=== PATIENT | female | born 1955 | race African-American/Black ===

== ENCOUNTER 2016-09-21 09:48 | Outpatient (CLI) | payer OTHER | END 2016-09-21 09:49 | disposition home or self-care (01) | LOC: SC 09:48 | PROVIDERS: ATTEND Nurse Practitioner Family | DX: G47.33 Obstructive sleep apnea (adult) (pediatric) (principal) | CPT/HCPCS: 99212; 99214 ==

== ENCOUNTER 2016-11-21 19:40 | Outpatient (CLI) | payer OTHER | END 2016-11-21 19:41 | disposition home or self-care (01) | LOC: SC 19:40 | PROVIDERS: ATTEND Internal Medicine Pulmonary Disease | DX: G47.33 Obstructive sleep apnea (adult) (pediatric) (principal) | CPT/HCPCS: 95810 ==

== ENCOUNTER 2016-12-06 02:32 | Emergency (ER) | payer OTHER ==
[2016-12-06 02:41] VITALS: BP 180/82
--- NOTE | 2016-12-06 02:51 | ED Physician Documentation ---
PD HPI FEMALE - Stated complaint Stated Complaint: ABDOMINAL PAIN - Chief complaint Chief Complaint: Abd Pain - History obtained from History obtained from: Patient - History of Present Illness Timing - onset: Last night Timing - details: Still present Associated symptoms: Dysuria, Urinary frequency Similar symptoms before: Diagnosis (UTI years ago.) - Additional information Additional information: The patient is a 61-year-old female who presents complaining of dysuria and frequency of urination. Her symptoms started last night and it become worse. She reports mild suprapubic abdominal discomfort. She denies fever or back pain. She states it feels like when she previously has been diagnosed with urinary tract infection, the last time which was more than 2 years ago. Review of Systems Constitutional: denies: Fever, Chills Nose: denies: Congestion Throat: denies: Sore throat Respiratory: denies: Dyspnea, Cough GI: reports: Abdominal Pain (mild suprapubic). denies: Nausea, Vomiting : reports: Dysuria, Frequency Skin: denies: Rash Musculoskeletal: denies: Back pain Neurologic: denies: Headache PD PAST MEDICAL HISTORY - Past Medical History Cardiovascular: Hypertension, High cholesterol, Coronary artery disease Endocrine/Autoimmune: Type 2 diabetes - Past Surgical History Past Surgical History: Yes Cardiovascular: CABG - Present Medications Home Medications: Ambulatory Orders Medication Instructions Recorded Confirmed Aspirin 81 mg PO DAILY 08/25/12 12/06/16 Atorvastatin Calcium [Lipitor] 30 mg PO HS 08/25/12 12/06/16 Ezetimibe [Zetia] 10 mg PO QD 08/25/12 12/06/16 Nitroglycerin [Nitrostat] 0.4 mg SL Q5MIN PRN 08/25/12 12/06/16 Ranitidine HCl 150 mg PO BID #28 capsule 08/25/12 12/06/16 Benzonatate [Tessalon Perle] 100 - 200 mg PO TID PRN #20 capsule 02/16/14 Azithromycin [Zithromax] 250 mg PO DAILY #6 tablet 02/24/15 12/06/16 Benzonatate [Tessalon Perle] 100 - 200 mg PO TID PRN #20 capsule 02/24/15 Nitrofurantoin Monohyd/M-Cryst 100 mg PO BID #10 capsule 12/06/16 [Macrobid 100 mg Capsule] Phenazopyridine HCl [Pyridium] 200 mg PO TID PRN #10 tablet 12/06/16 - Allergies Allergies/Adverse Reactions: Allergies Allergy/AdvReac Type Severity Reaction Status Date / Time nitroglycerin Allergy Hallucinati Verified 12/06/16 02:41 ons - Social History Does the pt smoke?: No Smoking Status: Never smoker Does the pt drink ETOH?: No Does the pt have substance abuse?: No - POLST Patient has POLST: No PD ED PE NORMAL - Vitals Vital signs reviewed: Yes (hypertensive) - General General: Alert and oriented X 3, Other (Overweight) - HEENT HEENT: Atraumatic, Pharynx benign - Neck Neck: No adenopathy, No JVD - Cardiac Cardiac: RRR, No murmur - Respiratory Respiratory: No respiratory distress, Clear bilaterally - Abdomen Abdomen: Soft, Non tender - Back Back: No CVA TTP - Derm Derm: No rash - Neuro Neuro: Alert and oriented X 3, No motor deficit, Normal speech Results - Vitals Vitals: Vital Signs - 24 hr 12/06/16 02:38 Temperature 37 C Heart Rate 71 Respiratory 18 Rate Blood Pressure 180/82 H O2 Saturation 97 Oxygen O2 Source Room air - Labs Labs: Laboratory Tests 12/06/16 02:37 Urine Color YELLOW Urine Clarity SL. CLOUDY Urine pH 6.0 Ur Specific [place] 1.025 Urine Protein 100 H Urine Glucose (UA) NEGATIVE Urine Ketones NEGATIVE Urine Occult Blood LARGE H Urine Nitrite NEGATIVE Urine Bilirubin NEGATIVE Urine Urobilinogen 0.2 (NORMAL) Ur Leukocyte Esterase LARGE H Urine RBC TNTC H Urine WBC 11-25 H Ur Squamous Epith Cells RARE Squamous Urine Bacteria Few Urine Casts 3-5 Hyaline Casts Ur Microscopic Review INDICATED Urine Culture Comments INDICATED PD MEDICAL DECISION MAKING - ED course Complexity details: reviewed old records, reviewed results, re-evaluated patient , considered differential, d/w patient ED course: The patient's presentation is most consistent with acute urinary tract infection. Her presentation does not suggest pyelonephritis nor sepsis. Treatment in the emergency department included administration of Macrobid 100 mg orally, and Pyridium 200 mg orally. She is being discharged with prescriptions for both. I discussed with her the diagnosis, expected course of illness, antibiotic treatment and outpatient follow-up, as well as potentially worrisome signs or symptoms that should prompt reevaluation in the emergency department. Departure - Departure Disposition: Home, Self Care Clinical Impression: Urinary tract infection Qualifiers: Urinary tract infection type: acute cystitis Hematuria presence: with hematuria Qualified Code(s): N30.01 - Acute cystitis with hematuria Condition: Stable Instructions: ED UTI Cystitis Female Follow-Up: [facility] [Provider Group] Prescriptions: Nitrofurantoin Monohyd/M-Cryst [Macrobid 100 mg Capsule] 100 mg PO BID #10 capsule Phenazopyridine HCl [Pyridium] 200 mg PO TID PRN #10 tablet PRN Reason: pain with urination Comments: Drink plenty of fluids, including cranberry juice. Take Macrobid twice daily as prescribed. You can use Pyridium as prescribed if needed for painful urination. Follow up with your primary physician within 2 weeks. Call to schedule appointment. Return to the emergency department if you develop increasing abdominal pain, fever with shaking chills, persistent vomiting, or otherwise worsening symptoms.
[2016-12-06 02:53] LABS: BILIRUBIN,URINE NEGATIVE (NEGATIVE)
[2016-12-06 02:54] LABS: UA w/ MICROSCOPIC CHARGE YES
[2016-12-06 03:04] LABS: UR CULTURE IF IND INDICATED
[2016-12-06] MEDS ORDERED: NITROFURANTOIN MACRO 100 MG CAPSULE PO STA (03:12)
[2016-12-06] MEDS ORDERED: PHENAZOPYRIDINE 100 MG TABLET PO STA (03:13)
[2016-12-06] MEDS ORDERED: NITROFURANTOIN MACRO 100 MG CAPSULE PO ONE (03:22)
[2016-12-06] MEDS ORDERED: PHENAZOPYRIDINE 100 MG TABLET PO ONE (03:22)
== END 2016-12-06 03:20 | disposition home or self-care (01) ==
LOC: ED 02:32
DX: N30.01 Acute cystitis with hematuria (principal); I10 Essential (primary) hypertension; E78.00 Pure hypercholesterolemia, unspecified; I25.10 Atherosclerotic heart disease of native coronary artery without angina pectoris; E11.9 Type 2 diabetes mellitus without complications; Z79.82 Long term (current) use of aspirin
CPT/HCPCS: 81001; 87086; 87181; 99283; A9270; 81003

== ENCOUNTER 2017-01-26 20:28 | Emergency (ER) | payer OTHER ==
[2017-01-26] MEDS ORDERED: ACETAMINOPHEN 325 MG TABLET PO STA (21:14)
--- NOTE | 2017-01-26 21:16 | ED Physician Documentation ---
History of Present Illness - Stated complaint Stated Complaint: LEG/FOOT PX - Chief complaint Chief Complaint: Ext Problem - History obtained from History obtained from: Patient - History of Present Illness Timing: Other (1 month) Pain level max: 5 Pain level now: 2 Improved by: nothing, hasn't taken anything Associated symptoms: no numbness or tingling - Additonal information Additional information: Patient states that she has B LE pain from her toes to mid calf. R > L. worse at night and with walking. No pain posterior calf, all anterior tibial area. Review of Systems Constitutional: denies: Fever Skin: denies: Rash Neurologic: denies: Focal weakness, Numbness, Confused PD PAST MEDICAL HISTORY - Past Medical History Cardiovascular: Hypertension, High cholesterol, Coronary artery disease Endocrine/Autoimmune: Type 2 diabetes - Past Surgical History Past Surgical History: Yes Cardiovascular: CABG - Present Medications Home Medications: Ambulatory Orders Medication Instructions Recorded Confirmed Aspirin 81 mg PO DAILY 08/25/12 01/26/17 Atorvastatin Calcium [Lipitor] 30 mg PO HS 08/25/12 01/26/17 Ezetimibe [Zetia] 10 mg PO QD 08/25/12 01/26/17 Nitroglycerin [Nitrostat] 0.4 mg SL Q5MIN PRN 08/25/12 01/26/17 raNITIdine HCl [Ranitidine HCl] 150 mg PO BID #28 capsule 08/25/12 01/26/17 Cyclobenzaprine [Flexeril] 5 - 10 mg PO TID PRN #10 tablet 01/26/17 - Allergies Allergies/Adverse Reactions: Allergies Allergy/AdvReac Type Severity Reaction Status Date / Time nitroglycerin Allergy Hallucinati Verified 01/26/17 20:38 ons - Social History Does the pt smoke?: No Smoking Status: Never smoker Does the pt drink ETOH?: No Does the pt have substance abuse?: No - POLST Patient has POLST: No PD ED PE NORMAL - Vitals Vital signs reviewed: Yes - General General: Alert and oriented X 3, No acute distress - Derm Derm: Warm and dry - Extremities Extremities: Other (Bilateral tenderness along the tibialis anterior. No bony tenderness. Mild swelling bilaterally. Neurovascularly intact. Strong dorsalis pedis and posterior tibial pulses.) - Neuro Neuro: Alert and oriented X 3 - Psych Psych: Normal mood, Normal affect Results - Vitals Vitals: Vital Signs - 24 hr 01/26/17 01/26/17 01/26/17 20:33 22:42 22:44 Temperature 36.0 C L 36.1 C L Heart Rate 63 61 Respiratory 20 20 Rate Blood Pressure 143/84 H 118/61 O2 Saturation 100 100 Oxygen O2 Source Room air - Rads (name of study) Bilateral lower extremity duplex ultrasound Radiology: Prelim report reviewed, EMP read contemporaneously, See rad report ( No DVT) PD MEDICAL DECISION MAKING - ED course Complexity details: reviewed results, re-evaluated patient, considered differential, d/w patient ED course: Patient is a 61-year-old female who presents to the emergency department with bilateral tibialis anterior pain. Appears worse when she is lying down at night. Compartments of the leg are soft. No evidence of compartment syndrome. Neurovascularly intact. No DVT. No cellulitis. Will trial on pain medication and muscle relaxants for home and follow-up closely with her doctor. Patient counseled regarding signs and symptoms for which I believe and urgent re-evaluation would be necessary. Patient with good understanding of and agreement to plan and is comfortable going home at this time This document was made in part using voice recognition software. While efforts are made to proofread this document, sound alike and grammatical errors may occur. Patient declines blood work at this time to check electrolytes Departure - Departure Disposition: 01 Home, Self Care Clinical Impression: Muscle strain, lower leg Qualifiers: Encounter type: initial encounter Laterality: unspecified laterality Qualified Code(s): S86.919A - Strain of unspecified muscle(s) and tendon(s) at lower leg level, unspecified leg, initial encounter Condition: Good Instructions: ED Strain Muscle Ext Follow-Up: your,doctor in 1 week [Other] Prescriptions: Cyclobenzaprine [Flexeril] 5 - 10 mg PO TID PRN #10 tablet PRN Reason: leg pain Comments: You can also use tylenol at home for pain. Return if you worsen. Your tests are normal tonight. Discharge Date/Time: 01/26/17 22:50
--- NOTE | 2017-01-26 22:31 | Ultrasound Preliminary Report ---
Exam: US DUPLEX EXT VEINS RIGHT IMPRESSION: No evidence for deep venous thrombosis. Limited as above. [facility] SITE ID: [id number]
--- NOTE | 2017-01-26 22:33 | Ultrasound Preliminary Report ---
Exam: US DUPLEX EXT VEINS LEFT IMPRESSION: No evidence for deep venous thrombosis. Limited visualization as above. [facility] SITE ID: [id number]
--- NOTE | 2017-01-26 22:34 | Ultrasound Report ---
EXAM: RIGHT LOWER EXTREMITY VENOUS ULTRASOUND EXAM DATE: 01/26/2017 10:19 PM. CLINICAL HISTORY: RIGHT calf pain. COMPARISON: None. TECHNIQUE: Real-time sonographic vascular imaging was performed by the rod drawer through the lower extremity utilizing both color-flow and Doppler spectral analysis. Multiple rental representative static dk ges were saved for review. FINDINGS: Common Femoral Vein (CFV): Normal. CFV-GSV Junction: Normal. Profunda Femoral Vein (PFV): Normal. Femoral Vein (FV) Prox: Normal. Femoral Vein (FV) Mid: Normal. Femoral Vein (FV) Dist: No thrombosis seen. Limited visualization. Popliteal Vein: Normal. Posterior Tibial Veins: No thrombosis seen. Limited visualization. Peroneal Veins: No thrombosis seen. Limited visualization. IMPRESSION: No evidence for deep venous thrombosis. Limited as above. [facility] Referring Provider Line: [phone] SITE ID: [id number]
--- NOTE | 2017-01-26 22:36 | Ultrasound Report ---
EXAM: LEFT LOWER EXTREMITY VENOUS ULTRASOUND EXAM DATE: 01/26/2017 09:47 PM. CLINICAL HISTORY: Left lower extremity pain, swelling, calf. COMPARISON: None. TECHNIQUE: Real-time sonographic vascular imaging was performed by the retina subspecialist through the lower extremity utilizing both color-flow and Doppler spectral analysis. Multiple sales representative advertising static dk ges were saved for review. FINDINGS: Common Femoral Vein (CFV): Normal. CFV-GSV Junction: Normal. Profunda Femoral Vein (PFV): Normal. Femoral Vein (FV) Prox: Normal. Femoral Vein (FV) Mid: No thrombosis seen. Limited visualization. Femoral Vein (FV) Dist: No thrombosis seen. Limited visualization. Popliteal Vein: Normal. Posterior Tibial Veins: No thrombosis seen. Limited visualization. Peroneal Veins: No thrombosis seen. Limited visualization. IMPRESSION: No evidence for deep venous thrombosis. Limited visualization as above. [facility] Referring Provider Line: [phone] SITE ID: [id number]
[2017-01-26] MEDS ORDERED: ACETAMINOPHEN 325 MG TABLET PO ONE (22:38)
[2017-01-26 22:43] VITALS: BP 118/61
== END 2017-01-26 22:50 | disposition home or self-care (01) ==
LOC: ED 20:28
DX: S86.919A Strain of unspecified muscle(s) and tendon(s) at lower leg level, unspecified leg, initial encounter (principal); X58.XXXA Exposure to other specified factors, initial encounter; I10 Essential (primary) hypertension; E78.00 Pure hypercholesterolemia, unspecified; I25.10 Atherosclerotic heart disease of native coronary artery without angina pectoris; E11.9 Type 2 diabetes mellitus without complications; Z95.1 Presence of aortocoronary bypass graft
CPT/HCPCS: 99283

== ENCOUNTER 2017-09-13 20:23 | Emergency (ER) | payer OTHER ==
[2017-09-13 20:28] VITALS: BP 136/70
--- NOTE | 2017-09-13 20:53 | ED Physician Documentation ---
PD HPI FEMALE - Stated complaint Stated Complaint: FEMALE - Chief complaint Chief Complaint: UTI - History obtained from History obtained from: Patient - History of Present Illness Timing - onset: How many days ago (2) Timing - duration: Days (2) Timing - details: Gradual onset, Still present, Waxing and waning Associated symptoms: Dysuria, Urinary frequency. No: Fever, Vaginal discharge, Genital sore/lesion Similar symptoms before: Diagnosis (uti) Review of Systems Constitutional: denies: Fever, Chills, Myalgias GI: denies: Abdominal Pain, Nausea, Vomiting : reports: Dysuria, Frequency. denies: Discharge Skin: denies: Rash PD PAST MEDICAL HISTORY - Past Medical History Past Medical History: Yes Cardiovascular: Hypertension, High cholesterol, Coronary artery disease Endocrine/Autoimmune: Type 2 diabetes - Past Surgical History Past Surgical History: Yes Cardiovascular: CABG - Present Medications Home Medications: Ambulatory Orders Medication Instructions Recorded Confirmed Aspirin 81 mg PO DAILY 08/25/12 09/13/17 Atorvastatin Calcium [Lipitor] 30 mg PO HS 08/25/12 09/13/17 Ezetimibe [Zetia] 10 mg PO QD 08/25/12 09/13/17 Nitroglycerin [Nitrostat] 0.4 mg SL Q5MIN PRN 08/25/12 09/13/17 raNITIdine HCl [Ranitidine HCl] 150 mg PO BID #28 capsule 08/25/12 09/13/17 Phenazopyridine [Pyridium] 200 mg PO TID PRN #18 tablet 09/13/17 Sulfamethox/Trimeth 800/160 1 each PO BID #14 tablet 09/13/17 [Bactrim Ds 800/160] - Allergies Allergies/Adverse Reactions: Allergies Allergy/AdvReac Type Severity Reaction Status Date / Time nitroglycerin Allergy Hallucinati Verified 09/13/17 20:28 ons - Social History Does the pt smoke?: No Smoking Status: Never smoker Does the pt drink ETOH?: No Does the pt have substance abuse?: No - Immunizations Immunizations are current?: Yes - POLST Patient has POLST: No PD ED PE NORMAL - Vitals Vital signs reviewed: Yes - General General: Alert and oriented X 3, No acute distress, Well developed/nourished - Abdomen Abdomen: Soft, Non tender - Female Female : Deferred - Rectal Rectal: Deferred - Back Back: No CVA TTP - Derm Derm: Normal color, Warm and dry Results - Vitals Vitals: Oxygen O2 Source Room air - Labs Labs: Laboratory Tests 09/13/17 21:19 Urine Color YELLOW Urine Clarity HAZY Urine pH 6.0 Ur Specific [place] <=1.005 Urine Protein NEGATIVE Urine Glucose (UA) NEGATIVE Urine Ketones NEGATIVE Urine Occult Blood MODERATE H Urine Nitrite NEGATIVE Urine Bilirubin NEGATIVE Urine Urobilinogen 0.2 (NORMAL) Ur Leukocyte Esterase MODERATE H Urine RBC 0-5 Urine WBC >25 H Urine WBC Clumps PRESENT Ur Squamous Epith Cells MOD Squamous H Urine Bacteria Moderate H Ur Microscopic Review INDICATED Urine Culture Comments NOT INDICATED PD MEDICAL DECISION MAKING - ED course Complexity details: reviewed results, considered differential, d/w patient - Sepsis Event Vital Signs: Oxygen O2 Source Room air Departure - Departure Disposition: 01 Home, Self Care Clinical Impression: Urinary tract infection Qualifiers: Urinary tract infection type: acute cystitis Hematuria presence: without hematuria Qualified Code(s): N30.00 - Acute cystitis without hematuria Condition: Stable Record reviewed to determine appropriate education?: Yes Instructions: Urinary Tract Infecs Women Prescriptions: Phenazopyridine [Pyridium] 200 mg PO TID PRN #18 tablet PRN Reason: Pain Sulfamethox/Trimeth 800/160 [Bactrim Ds 800/160] 1 each PO BID #14 tablet Comments: Drink adequate fluids. Tylenol if needed for pain. Phenazopyridine every 6 hours if needed for discomfort of urination. It will turn your urine a little orange colored so not to worry. Bactrim antibiotic twice daily for 6 days. Recheck if not improved over the next couple of days however. Discharge Date/Time: 09/13/17 22:18
[2017-09-13 21:23] LABS: BILIRUBIN,URINE NEGATIVE (NEGATIVE); GLUCOSE, URINE (UA) NEGATIVE (NEGATIVE); KETONES,URINE (UA) NEGATIVE (NEGATIVE); LEUKOCYTE ESTERASE, URINE MODERATE (NEGATIVE); NITRITE,URINE NEGATIVE (NEGATIVE); OCCULT BLOOD,URINE MODERATE (NEGATIVE); PROTEIN,URINE NEGATIVE (NEGATIVE); UROBILINOGEN,URINE 0.2 (NORMAL) E.U./dL (NORMAL)
[2017-09-13 21:27] LABS: CLARITY,URINE HAZY (CLEAR)
[2017-09-13 21:33] LABS: BACTERIA,URINE Moderate /HPF (None Seen); RBC,URINE 0-5 /HPF (0-5); SQUAMOUS EPITHELIAL CELL,UR MOD Squamous (<= Few); WBC CLUMPS,URINE PRESENT
[2017-09-13] MEDS ORDERED: PHENAZOPYRIDINE 100 MG TABLETS (Prepack) PO PRN (22:01)
[2017-09-13] MEDS ORDERED: SULFAM/TRIM 800/160 Prepack 2 PO ONE (22:01)
== END 2017-09-13 22:18 | disposition home or self-care (01) ==
LOC: ED 20:23
DX: N30.00 Acute cystitis without hematuria (principal); E11.9 Type 2 diabetes mellitus without complications; I10 Essential (primary) hypertension; I25.10 Atherosclerotic heart disease of native coronary artery without angina pectoris; E78.00 Pure hypercholesterolemia, unspecified; Z95.1 Presence of aortocoronary bypass graft; Z79.82 Long term (current) use of aspirin
CPT/HCPCS: 81001; 81003; 87086; 99283

== ENCOUNTER 2017-12-11 19:38 | Emergency (ER) | payer OTHER ==
[2017-12-11] MEDS ORDERED: MAG HYDROX/AL HYDROX/SIMETH 30 ML UDC PO STA (20:10)
[2017-12-11] MEDS ORDERED: FAMOTIDINE 20 MG TABLET PO STA (20:10)
[2017-12-11] MEDS ORDERED: LIDOCAINE VISCOUS 2% 15 ML UDC MM STA (20:10)
--- NOTE | 2017-12-11 20:23 | ED Physician Documentation ---
PD HPI CHEST PAIN - Stated complaint Stated Complaint: CHEST PX - Chief complaint Chief Complaint: Cardiac - History obtained from History obtained from: Patient - History of Present Illness Timing - onset: How many days ago (2) Timing - onset during: Rest Timing - details: Intermittant Quality: Sharp Location: Substernal Radiation: No: Other (throat) Worsened by: Eating Associated symptoms: No: Shortness of air Similar symptoms before: Has not had sx before Recently seen: Clinic - Additional information Additional information: Patient is a 62 year old female with a history of coronary bipass approximately 12 years ago who is presenting to the emergency department for epigastric pain. patient states that it is in the center of her chest and it goes up her throat. it is worsening by food. there is no exertional component to her symptoms. patient states that it has been going on for the last few days. patient was at [employer] today and the preaching was talking about ignoring things in life so she decided to come in to get evaluated. Patient had a treadmill stress test 4 months ago and it was within normal limits. Review of Systems Ten Systems: 10 systems reviewed and negative Constitutional: denies: Fever, Chills Cardiac: reports: Chest pain / pressure Respiratory: denies: Dyspnea, Cough, Wheezing GI: reports: Abdominal Pain. denies: Nausea, Vomiting PD PAST MEDICAL HISTORY - Past Medical History Cardiovascular: Hypertension, High cholesterol, Coronary artery disease Endocrine/Autoimmune: Type 2 diabetes - Past Surgical History Past Surgical History: Yes Cardiovascular: CABG - Present Medications Home Medications: Ambulatory Orders Medication Instructions Recorded Confirmed Aspirin 81 mg PO DAILY 08/25/12 09/13/17 Atorvastatin Calcium [Lipitor] 30 mg PO HS 08/25/12 09/13/17 Ezetimibe [Zetia] 10 mg PO QD 08/25/12 09/13/17 Nitroglycerin [Nitrostat] 0.4 mg SL Q5MIN PRN 08/25/12 09/13/17 raNITIdine HCl [Ranitidine HCl] 150 mg PO BID #28 capsule 08/25/12 09/13/17 Phenazopyridine [Pyridium] 200 mg PO TID PRN #18 tablet 09/13/17 Sulfamethox/Trimeth 800/160 1 each PO BID #14 tablet 09/13/17 [Bactrim Ds 800/160] Lidocaine HCl [Lidocaine HCl 15 ml MM DAILY PRN #200 ml 12/11/17 Viscous] - Allergies Allergies/Adverse Reactions: Allergies Allergy/AdvReac Type Severity Reaction Status Date / Time nitroglycerin Allergy Hallucinati Verified 12/11/17 20:02 ons - Social History Does the pt smoke?: No Smoking Status: Never smoker Does the pt drink ETOH?: No Does the pt have substance abuse?: No - Immunizations Immunizations are current?: Yes - POLST Patient has POLST: No PD ED PE NORMAL - Vitals Vital signs reviewed: Yes - General General: Alert and oriented X 3, No acute distress - HEENT HEENT: Atraumatic, PERRL - Cardiac Cardiac: RRR - Respiratory Respiratory: No respiratory distress, Clear bilaterally - Abdomen Abdomen: Soft - Derm Derm: Normal color, Warm and dry - Extremities Extremities: No deformity - Neuro Neuro: No motor deficit, Normal speech Results - Vitals Vitals: Vital Signs - 24 hr 12/11/17 19:50 Temperature 98.0 C H Heart Rate 71 Respiratory 18 Rate Blood Pressure 167/73 H O2 Saturation 98 Oxygen O2 Source Room air - EKG (time done) 2000 Rate: Rate (enter#) (69) Rhythm: NSR [place]: Normal Compare to prior EKG: Unchanged from prior EKG - Labs Labs: Laboratory Tests 12/11/17 12/11/17 12/11/17 20:50 20:50 20:50 WBC 5.1 RBC 4.00 L Hgb 11.3 L Hct 33.4 L MCV 83.5 MCH 28.3 MCHC 33.9 RDW 15.7 H Plt Count 175 MPV 9.0 Neut # (Auto) 2.5 Lymph # (Auto) 2.0 [place] # (Auto) 0.3 Eos # (Auto) 0.1 Baso # (Auto) 0.1 Absolute Nucleated RBC 0.00 Nucleated RBC % 0.0 Sodium 135 Potassium 3.2 L Chloride 98 L Carbon Dioxide 28 Anion Gap 9.0 BUN 12 Creatinine 0.9 Estimated GFR (MDRD) 77 L Glucose 94 Calcium 9.3 Total Bilirubin 0.6 AST 21 ALT 15 Alkaline Phosphatase 82 Troponin I < 0.04 B-Natriuretic Peptide Total Protein 8.6 H Albumin 3.7 Globulin 4.9 H Albumin/Globulin Ratio 0.8 L Lipase 34 12/11/17 20:50 WBC RBC Hgb Hct MCV MCH MCHC RDW Plt Count MPV Neut # (Auto) Lymph # (Auto) [place] # (Auto) Eos # (Auto) Baso # (Auto) Absolute Nucleated RBC Nucleated RBC % Sodium Potassium Chloride Carbon Dioxide Anion Gap BUN Creatinine Estimated GFR (MDRD) Glucose Calcium Total Bilirubin AST ALT Alkaline Phosphatase Troponin I B-Natriuretic Peptide 21 Total Protein Albumin Globulin Albumin/Globulin Ratio Lipase - Rads (name of study) chest x-ray Radiology: Final report received (no acute abnormalities) PD MEDICAL DECISION MAKING - ED course Complexity details: reviewed old records, reviewed results, re-evaluated patient, considered differential, d/w patient ED course: Rosaura was seen and examined at bedside. patient was well appearing and in no distress. ekg was performed and although poor quality was similar to previous. patient was treated with pepcid, maalox and viscous lidocaine with good relief. patient's labs were within normal limits. patient had a negative stress test less than a year ago. patient's symptoms were unlikely cardiac and patient was stable for discharge with outpatient follow up. - Sepsis Event Vital Signs: Vital Signs - 24 hr 12/11/17 19:50 Temperature 98.0 C H Heart Rate 71 Respiratory 18 Rate Blood Pressure 167/73 H O2 Saturation 98 Oxygen O2 Source Room air Departure - Departure Disposition: 01 Home, Self Care Clinical Impression: Gastroesophageal reflux disease Condition: Good Instructions: GERD Dc Follow-Up: primary,care provider [Other] - Tomorrow Prescriptions: Lidocaine HCl [Lidocaine HCl Viscous] 15 ml MM DAILY PRN #200 ml PRN Reason: Abdominal Pain Comments: Your diagnostics today were within normal limits. there were no significant abnormalities. Your symptoms more likely due to acid reflux as opposed to car diac but it is important that you follow up with your doctor. You should avoid fried foods, spicy foods, and acidic foods. You should reutn to the emergency department for worsening symptoms.
--- NOTE | 2017-12-11 20:54 | XRAY Report ---
Reason: fever, hx of lung failure Procedure Date: 12/11/2017 Accession Number: [id number] / [id number] Procedure: XR - Chest 1 View X-Ray CPT Code: 24852 FULL RESULT: EXAM: CHEST RADIOGRAPHY EXAM DATE: 12/11/2017 08:24 PM. CLINICAL HISTORY: Fever, hx of lung failure. COMPARISON: 08/25/2012. TECHNIQUE: 1 view. FINDINGS: Lungs/Pleura: No focal opacities evident. No pleural effusion. No pneumothorax. Mediastinum: Previous sternotomy noted. Mediastinal contour are unchanged. Other: None. IMPRESSION: Negative for an acute cardiopulmonary abnormality. [facility]
[2017-12-11 20:56] LABS: BASOPHILS # (AUTO) 0.1 10^3/uL (0.0-0.1); BASOPHILS % (AUTO) 1.1 %; EOSINOPHILS # (AUTO) 0.1 10^3/uL (0.0-0.7); EOSINOPHILS % (AUTO) 2.7 %; HGB - HEMOGLOBIN 11.3 g/dL (12.0-16.0); LYMPHOCYTES % (AUTO) 39.6 %; MEAN CORPUSCULAR HEMOGLOBIN 28.3 pg (27.0-31.0); MEAN CORPUSCULAR HGB CONC 33.9 g/dL (32.0-36.0); MEAN CORPUSCULAR VOLUME 83.5 fL (81.0-99.0); MONOCYTES # (AUTO) 0.3 10^3/uL (0.0-1.0); MONOCYTES % (AUTO) 6.9 %; NEUTROPHILS # (AUTO) 2.5 10^3/uL (1.5-6.6); NEUTROPHILS % (AUTO) 49.7 %; PLT - PLATELET COUNT 175 10^3/uL (130-450); RED CELL DISTRIBUTION WIDTH 15.7 % (12.0-15.0); WHITE BLOOD COUNT 5.1 x10^3/uL (4.8-10.8)
[2017-12-11 21:10] LABS: ALBUMIN 3.7 g/dL (3.2-5.5); ALBUMIN/GLOBULIN RATIO 0.8 (1.0-2.2); BILIRUBIN,TOTAL 0.6 mg/dL (0.2-1.0); CALCIUM 9.3 mg/dL (8.5-10.3); CREATININE 0.9 mg/dL (0.4-1.0); TOTAL PROTEIN 8.6 g/dL (6.7-8.2)
[2017-12-11 21:39] VITALS: BP 147/85
== END 2017-12-11 21:39 | disposition home or self-care (01) ==
LOC: ED 19:38
DX: I10 Essential (primary) hypertension (principal); E11.9 Type 2 diabetes mellitus without complications; Z95.1 Presence of aortocoronary bypass graft; K21.9 Gastro-esophageal reflux disease without esophagitis
CPT/HCPCS: 36415; 71045; 80053; 83690; 83880; 84484; 85025; 93005; 99283; A9270

== ENCOUNTER 2018-04-08 09:14 | Emergency (ER) | payer OTHER ==
[2018-04-08] MEDS ORDERED: LIDOCAINE PATCH 5% TOP STA (10:00)
--- NOTE | 2018-04-08 10:02 | ED Physician Documentation ---
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 - to ED for some medications to ease the pain Review of Systems Constitutional: denies: Fever Cardiac: denies: Chest pain / pressure Respiratory: denies: Dyspnea GI: denies: Abdominal Pain : denies: Dysuria, Incontinent, Hematuria Musculoskeletal: reports: Back pain, Joint pain Neurologic: denies: Focal weakness, Numbness Endocrine: denies: Easy bruising / bleeding Immunocompromised: denies: Immunocompromised PD PAST MEDICAL HISTORY - Past Medical History Cardiovascular: Hypertension, High cholesterol, Coronary artery disease Endocrine/Autoimmune: Type 2 diabetes - Past Surgical History Past Surgical History: Yes Cardiovascular: CABG - Present Medications Home Medications: Ambulatory Orders Medication Instructions Recorded Confirmed Aspirin 81 mg PO DAILY 08/25/12 09/13/17 Atorvastatin Calcium [Lipitor] 30 mg PO HS 08/25/12 09/13/17 Ezetimibe [Zetia] 10 mg PO QD 08/25/12 09/13/17 Nitroglycerin [Nitrostat] 0.4 mg SL Q5MIN PRN 08/25/12 09/13/17 raNITIdine HCl [Ranitidine HCl] 150 mg PO BID #28 capsule 08/25/12 09/13/17 Phenazopyridine [Pyridium] 200 mg PO TID PRN #18 tablet 09/13/17 Sulfamethox/Trimeth 800/160 1 each PO BID #14 tablet 09/13/17 [Bactrim Ds 800/160] Lidocaine HCl [Lidocaine HCl 15 ml MM DAILY PRN #200 ml 12/11/17 Viscous] Cyclobenzaprine [Flexeril] 10 mg PO TID PRN #20 tablet 04/08/18 Indomethacin [Indocin] 25 mg PO BIDWM PRN #14 capsule 04/08/18 Lidocaine Patch 5% [Lidoderm Patch] 1 patch TOP DAILY PRN #10 patch 04/08/18 - Allergies Allergies/Adverse Reactions: Allergies Allergy/AdvReac Type Severity Reaction Status Date / Time nitroglycerin Allergy Hallucinati Verified 12/11/17 20:02 ons - Social History Does the pt smoke?: No Smoking Status: Never smoker Does the pt drink ETOH?: No Does the pt have substance abuse?: No - Immunizations Immunizations are current?: Yes - POLST Patient has POLST: No PD ED PE NORMAL - Vitals Vital signs reviewed: Yes - Cardiac Cardiac: RRR - Respiratory Respiratory: No respiratory distress, Clear bilaterally - Abdomen Abdomen: Non tender, Other (no pulsatile mass) - Back Back: Other (no focal spine TTP redness or warmth, TTP over posterior iliac spine region also s redness or warmth or rash, hip itself is full ROM flex ext int ext roat ADD ABD s pain, MSV intact) - Neuro Neuro: No motor deficit, No sensory deficit, Other (neg SLR, no clonus) Results - Vitals Vitals: Vital Signs - 24 hr 04/08/18 09:35 Temperature 36.2 C L Heart Rate 81 Respiratory 16 Rate Blood Pressure 144/88 H O2 Saturation 100 Oxygen O2 Source Room air PD MEDICAL DECISION MAKING - ED course ED course: focal TTP to very low L lumbar region after lifting hx exam do not suggest AAA, cauda equina, epidural abscess etc Departure - Departure Disposition: 01 Home, Self Care Clinical Impression: Back pain Qualifiers: Back pain location: low back pain Chronicity: acute Back pain laterality: left Sciatica presence: without sciatica Qualified Code(s): M54.5 - Low back pain Condition: Good Instructions: ED Low Back Pain Injury Prescriptions: Cyclobenzaprine [Flexeril] 10 mg PO TID PRN #20 tablet PRN Reason: Spasms Indomethacin [Indocin] 25 mg PO BIDWM PRN #14 capsule PRN Reason: Pain Lidocaine Patch 5% [Lidoderm Patch] 1 patch TOP DAILY PRN #10 patch PRN Reason: pain Comments: May wear the lidocaine patches applied to the most painful area for up to 12 hr a day Indocin to decrease pain and inflammation (take with food) And flexeril to help relax the muscles - may cause drowsiness so do not drive for 8 hr after taking this medication - may just want to take at night
[2018-04-08 10:15] VITALS: BP 117/105
== END 2018-04-08 10:27 | disposition home or self-care (01) ==
LOC: ED 09:14
DX: M54.5 Low back pain (principal); I25.10 Atherosclerotic heart disease of native coronary artery without angina pectoris; Z95.1 Presence of aortocoronary bypass graft; I10 Essential (primary) hypertension; E78.00 Pure hypercholesterolemia, unspecified; E11.9 Type 2 diabetes mellitus without complications; Z79.82 Long term (current) use of aspirin
CPT/HCPCS: 99283; A9270

== ENCOUNTER 2018-05-13 06:11 | Emergency (ER) | payer OTHER ==
[2018-05-13 06:22] VITALS: BP 135/76
--- NOTE | 2018-05-13 06:26 | ED Physician Documentation ---
PD HPI BACK PAIN - Stated complaint Stated Complaint: LOWER BACK PX - Chief complaint Chief Complaint: Back Pain - History obtained from History obtained from: Patient - History of Present Illness Timing - onset: Last night Timing - details: Gradual onset, Waxing and waning Location: Lower, Left Quality: Pain, Similar to prior episodes Associated symptoms: No: Fever, Weakness, Numbness, Incontinent of urine, Unable to urinate, Hematuria, Incontinent of stool Improves with: Rest Worsened by: Movement Recently seen: Emergency Dept - Additional information Additional information: c/o left low back pain that radiates around left side to left anterior hip/pelvis. T+R for similar symptoms 1 month ago, followed-up with PMD (ANISA) and has had one session with PT. 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 : None HEENT: None Psych: None Musculoskeletal: Chronic back pain Derm: None - Past Surgical History Past Surgical History: Yes Cardiovascular: CABG - Present Medications Home Medications: Ambulatory Orders Medication Instructions Recorded Confirmed Aspirin 81 mg PO DAILY 08/25/12 09/13/17 Atorvastatin Calcium [Lipitor] 30 mg PO HS 08/25/12 09/13/17 Ezetimibe [Zetia] 10 mg PO QD 08/25/12 09/13/17 Nitroglycerin [Nitrostat] 0.4 mg SL Q5MIN PRN 08/25/12 09/13/17 raNITIdine HCl [Ranitidine HCl] 150 mg PO BID #28 capsule 08/25/12 09/13/17 Phenazopyridine [Pyridium] 200 mg PO TID PRN #18 tablet 09/13/17 Sulfamethox/Trimeth 800/160 1 each PO BID #14 tablet 09/13/17 [Bactrim Ds 800/160] Lidocaine HCl [Lidocaine HCl 15 ml MM DAILY PRN #200 ml 12/11/17 Viscous] Cyclobenzaprine [Flexeril] 10 mg PO TID PRN #20 tablet 04/08/18 Indomethacin [Indocin] 25 mg PO BIDWM PRN #14 capsule 04/08/18 Lidocaine Patch 5% [Lidoderm Patch] 1 patch TOP DAILY PRN #10 patch 04/08/18 Cyclobenzaprine [Flexeril] 10 mg PO TID PRN #20 tablet 05/13/18 Lidocaine Patch 5% [Lidoderm Patch] 1 each TOP DAILY PRN #10 patch 05/13/18 Tramadol HCl 50 mg PO Q6HR PRN #20 tablet 05/13/18 - Allergies Allergies/Adverse Reactions: Allergies Allergy/AdvReac Type Severity Reaction Status Date / Time nitroglycerin Allergy Hallucinati Verified 05/13/18 06:21 ons - Social History Does the pt smoke?: No Smoking Status: Never smoker Does the pt drink ETOH?: No Does the pt have substance abuse?: No - Immunizations Immunizations are current?: Yes - POLST Patient has POLST: No PD ED PE NORMAL - Vitals Vital signs reviewed: Yes - General General: Alert and oriented X 3, No acute distress (NAD at rest but appears to have painful discomfort when she stands from seated position), Well developed/nourished - Abdomen Abdomen: Soft, Non tender - Back Back: No spinal TTP - Derm Derm: Normal color, Warm and dry, No rash - Extremities Extremities: No edema - Neuro Neuro: No motor deficit, No sensory deficit Results - Vitals Vitals: Vital Signs - 24 hr 05/13/18 06:18 Temperature 36.7 C Heart Rate 77 Respiratory 18 Rate Blood Pressure 135/76 H O2 Saturation 97 Oxygen O2 Source Room air PD MEDICAL DECISION MAKING - ED course Complexity details: reviewed old records, considered differential, d/w patient ED course: atraumatic left low back pain radiating around anteriorly to left hip/groin. no neurologic c/o nor findings, denies fever. unremarkable exam. emergent testing, including imaging, not indicated at this time. we discussed options for pain control, and she declines toradol, vicodin, oxycodone. she says she did not feel the medications provided on previous ED visit were particularly effective, but she is worried about side effects of narcotic medications that we discussed. after further discussion, we agreed that tramadol would be an appropriate medication to try, and she wishes to have new rx for lidocaine patches and flexeril. I instructed her to f/u w/ PMD and to return at any time she feels she needs reevaluation, particularly if she is worse in any way Departure - Departure Disposition: 01 Home, Self Care Clinical Impression: Back pain Qualifiers: Back pain location: low back pain Chronicity: acute Back pain laterality: left Sciatica presence: without sciatica Qualified Code(s): M54.5 - Low back pain Condition: Good Instructions: ED Neck Back Pain General Follow-Up: [facility] [Provider Group] Prescriptions: Tramadol HCl 50 mg PO Q6HR PRN #20 tablet PRN Reason: Pain Cyclobenzaprine [Flexeril] 10 mg PO TID PRN #20 tablet PRN Reason: Spasms Lidocaine Patch 5% [Lidoderm Patch] 1 each TOP DAILY PRN #10 patch PRN Reason: Pain Discharge Date/Time: 05/13/18 07:26
[2018-05-13] MEDS ORDERED: LIDOCAINE PATCH 5% TOP STA (07:09)
== END 2018-05-13 07:26 | disposition home or self-care (01) ==
LOC: ED 06:11
DX: M54.5 Low back pain (principal); M25.552 Pain in left hip; I10 Essential (primary) hypertension; E11.9 Type 2 diabetes mellitus without complications; Z79.82 Long term (current) use of aspirin
CPT/HCPCS: 99283; A9270

== ENCOUNTER 2019-04-02 07:24 | Emergency (ER) | payer OTHER ==
[2019-04-02 07:35] VITALS: BP 153/72
--- NOTE | 2019-04-02 07:45 | ED Physician Documentation ---
History of Present Illness - Stated complaint Stated Complaint: FEMALE - Chief complaint Chief Complaint: UTI - Additonal information Additional information: This is a 63-year-old female who presents with pain in urination for several day s. She denies abdominal pain fever or flank pain. She states that every time she pees is burning. This feels similar to past UTIs. Review of Systems Constitutional: denies: Fever GI: denies: Abdominal Pain : reports: Dysuria. 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 : None HEENT: None Psych: None Musculoskeletal: Chronic back pain Derm: None - Past Surgical History Past Surgical History: Yes Cardiovascular: CABG - Present Medications Home Medications: Ambulatory Orders Medication Instructions Recorded Confirmed Aspirin 81 mg PO DAILY 08/25/12 09/13/17 Atorvastatin Calcium [Lipitor] 30 mg PO HS 08/25/12 09/13/17 Ezetimibe [Zetia] 10 mg PO QD 08/25/12 09/13/17 Nitroglycerin [Nitrostat] 0.4 mg SL Q5MIN PRN 08/25/12 09/13/17 raNITIdine HCl [Ranitidine HCl] 150 mg PO BID #28 capsule 08/25/12 09/13/17 Phenazopyridine [Pyridium] 200 mg PO TID PRN #18 tablet 09/13/17 Sulfamethox/Trimeth 800/160 1 each PO BID #14 tablet 09/13/17 [Bactrim Ds 800/160] Lidocaine HCl [Lidocaine HCl 15 ml MM DAILY PRN #200 ml 12/11/17 Viscous] Cyclobenzaprine [Flexeril] 10 mg PO TID PRN #20 tablet 04/08/18 Indomethacin [Indocin] 25 mg PO BIDWM PRN #14 capsule 04/08/18 Lidocaine Patch 5% [Lidoderm Patch] 1 patch TOP DAILY PRN #10 patch 04/08/18 Cyclobenzaprine [Flexeril] 10 mg PO TID PRN #20 tablet 05/13/18 Lidocaine Patch 5% [Lidoderm Patch] 1 each TOP DAILY PRN #10 patch 05/13/18 Tramadol HCl 50 mg PO Q6HR PRN #20 tablet 05/13/18 - Allergies Allergies/Adverse Reactions: Allergies Allergy/AdvReac Type Severity Reaction Status Date / Time nitroglycerin Allergy Hallucinati Verified 04/02/19 07:35 ons - Social History Does the pt smoke?: No Smoking Status: Never smoker Does the pt drink ETOH?: No Does the pt have substance abuse?: No - Immunizations Immunizations are current?: Yes - POLST Patient has POLST: No PD ED PE NORMAL - Vitals Vital signs reviewed: Yes - General General: Alert and oriented X 3, No acute distress - Cardiac Cardiac: RRR - Respiratory Respiratory: No respiratory distress - Abdomen Abdomen: Soft, Non tender, Non distended - Derm Derm: Warm and dry - Extremities Extremities: No deformity - Neuro Neuro: Alert and oriented X 3 - Psych Psych: Normal mood, Normal affect Results - Vitals Vitals: Vital Signs - 24 hr 04/02/19 07:33 Temperature 36.3 C L Heart Rate 63 Respiratory 16 Rate Blood Pressure 153/72 H O2 Saturation 96 Oxygen O2 Source Room air PD MEDICAL DECISION MAKING - ED course ED course: This is a 63-year-old female presents with classic UTI symptoms. She has no abdominal pain flank pain fever or other symptoms that suggest pyelonephritis or more serious infection. She denies any pain or swelling of the vulva itself. Urinalysis was sent and shows a urinary tract infection, we will treat her with antibiotics as well as Pyridium for discomfort. Return precautions and follow- up was discussed and patient was discharged in good condition Departure - Departure Clinical Impression: UTI (urinary tract infection) Qualifiers: Urinary tract infection type: acute cystitis Hematuria presence: without hematuria Qualified Code(s): N30.00 - Acute cystitis without hematuria Condition: Good Instructions: ED UTI Cystitis Female
[2019-04-02 07:56] LABS: BILIRUBIN,URINE NEGATIVE (NEGATIVE); GLUCOSE, URINE (UA) NEGATIVE (NEGATIVE); KETONES,URINE (UA) NEGATIVE (NEGATIVE); LEUKOCYTE ESTERASE, URINE SMALL (NEGATIVE); NITRITE,URINE NEGATIVE (NEGATIVE); OCCULT BLOOD,URINE MODERATE (NEGATIVE); PH,URINE 5.5 PH (5.0-7.5); PROTEIN,URINE TRACE mg/dL (NEGATIVE); UROBILINOGEN,URINE 0.2 (NORMAL) E.U./dL (NORMAL)
[2019-04-02 08:04] LABS: CLARITY,URINE CLOUDY (CLEAR)
[2019-04-02 08:08] LABS: BACTERIA,URINE Many /HPF (None Seen); SQUAMOUS EPITHELIAL CELL,UR MANY Squamous (<= Few)
[2019-04-02 08:09] LABS: MUCUS,URINE Marked Strands
[2019-04-02] MEDS ORDERED: cephALEXin 250 MG CAPSULE PO STA (08:13)
== END 2019-04-02 08:33 | disposition home or self-care (01) ==
LOC: ED 07:24
DX: N30.00 Acute cystitis without hematuria (principal); I10 Essential (primary) hypertension; E11.9 Type 2 diabetes mellitus without complications; Z79.82 Long term (current) use of aspirin
CPT/HCPCS: 81001; 99283; A9270; 81003; 87086

== ENCOUNTER 2020-01-25 21:38 | Emergency (ER) | payer OTHER ==
[2020-01-25 22:00] LABS: BILIRUBIN,URINE NEGATIVE (NEGATIVE); GLUCOSE, URINE (UA) NEGATIVE (NEGATIVE); KETONES,URINE (UA) NEGATIVE (NEGATIVE); LEUKOCYTE ESTERASE, URINE LARGE (NEGATIVE); NITRITE,URINE NEGATIVE (NEGATIVE); OCCULT BLOOD,URINE LARGE (NEGATIVE); PROTEIN,URINE 30 mg/dL (NEGATIVE); UROBILINOGEN,URINE 0.2 (NORMAL) E.U./dL (NORMAL)
[2020-01-25 22:02] LABS: CLARITY,URINE CLOUDY (CLEAR)
[2020-01-25 22:16] LABS: BACTERIA,URINE Moderate /HPF (None Seen); RBC,URINE TNTC /HPF (0-5); SQUAMOUS EPITHELIAL CELL,UR NONE SEEN (<= Few)
--- NOTE | 2020-01-25 22:25 | ED Physician Documentation ---
PD HPI FEMALE - Stated complaint Stated Complaint: FEMALE - Chief complaint Chief Complaint: UTI - History obtained from History obtained from: Patient - History of Present Illness Timing - onset: Today Timing - duration: Hours Timing - details: Abrupt onset Pain level max: 0 Associated symptoms: Dysuria, Urinary frequency. No: Fever, Back pain, Pelvic pain, Vaginal pain Similar symptoms before: Diagnosis (similar to previous UTI) Recently seen: Not recently seen - Additional information Additional information: since this afternoon has had urinary frequency with burning dysuria Review of Systems Constitutional: denies: Fever, Chills, Sweats GI: denies: Abdominal Pain : reports: Dysuria, Frequency Musculoskeletal: denies: Back pain PD PAST MEDICAL HISTORY - Past Medical History Cardiovascular: Hypertension, High cholesterol, Coronary artery disease Respiratory: None Neuro: None Endocrine/Autoimmune: Type 2 diabetes GI: 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 : None HEENT: None Psych: None Musculoskeletal: Chronic back pain Derm: None - Past Surgical History Past Surgical History: Yes Cardiovascular: CABG - Present Medications Home Medications: Ambulatory Orders Medication Instructions Recorded Confirmed Aspirin 81 mg PO DAILY 08/25/12 09/13/17 Atorvastatin Calcium [Lipitor] 30 mg PO HS 08/25/12 09/13/17 Ezetimibe [Zetia] 10 mg PO QD 08/25/12 09/13/17 Nitroglycerin [Nitrostat] 0.4 mg SL Q5MIN PRN 08/25/12 09/13/17 raNITIdine HCL [Ranitidine HCl] 150 mg PO BID #28 capsule 08/25/12 09/13/17 Phenazopyridine [Pyridium] 200 mg PO TID PRN #18 tablet 09/13/17 Sulfamethox/Trimeth 800/160 1 each PO BID #14 tablet 09/13/17 [Bactrim Ds 800/160] lidocaine HCL [Lidocaine HCl 15 ml MM DAILY PRN #200 ml 12/11/17 Viscous] Cyclobenzaprine [Flexeril] 10 mg PO TID PRN #20 tablet 04/08/18 Indomethacin [Indocin] 25 mg PO BIDWM PRN #14 capsule 04/08/18 Lidocaine Patch 5% [Lidoderm Patch] 1 patch TOP DAILY PRN #10 patch 04/08/18 Cyclobenzaprine [Flexeril] 10 mg PO TID PRN #20 tablet 05/13/18 Lidocaine Patch 5% [Lidoderm Patch] 1 each TOP DAILY PRN #10 patch 05/13/18 Tramadol HCl 50 mg PO Q6HR PRN #20 tablet 05/13/18 Cephalexin [Keflex] 500 mg PO Q6H #20 capsule 04/02/19 Phenazopyridine HCl [Pyridium] 200 mg PO TID PRN #6 tablet 04/02/19 Nitrofurantoin [Macrobid] 100 mg PO BID #9 capsule 01/25/20 Phenazopyridine HCl [Pyridium] 200 mg PO TID 2 Days #6 tablet 01/25/20 - Allergies Allergies/Adverse Reactions: Allergies Allergy/AdvReac Type Severity Reaction Status Date / Time nitroglycerin Allergy Hallucinati Verified 01/25/20 21:40 ons - Social History Does the pt smoke?: No Smoking Status: Never smoker Does the pt drink ETOH?: No Does the pt have substance abuse?: No - Immunizations Immunizations are current?: Yes - POLST Patient has POLST: No PD ED PE NORMAL - Vitals Vital signs reviewed: Yes - General General: Alert and oriented X 3, No acute distress, Well developed/nourished - Abdomen Abdomen: Soft, Non tender - Back Back: No CVA TTP Results - Vitals Vitals: Vital Signs - 24 hr 01/25/20 21:41 Temperature 36.5 C Heart Rate 81 Respiratory 16 Rate Blood Pressure 149/73 H O2 Saturation 98 Oxygen O2 Source Room air - Labs Labs: Laboratory Tests 01/25/20 21:50 Urine Color YELLOW Urine Clarity CLOUDY Urine pH 6.0 Ur Specific [place] 1.010 Urine Protein 30 H Urine Glucose (UA) NEGATIVE Urine Ketones NEGATIVE Urine Occult Blood LARGE H Urine Nitrite NEGATIVE Urine Bilirubin NEGATIVE Urine Urobilinogen 0.2 (NORMAL) Ur Leukocyte Esterase LARGE H Urine RBC TNTC H Urine WBC >25 H Ur Squamous Epith Cells NONE SEEN Urine Bacteria Moderate H Ur Microscopic Review INDICATED Urine Culture Comments INDICATED PD MEDICAL DECISION MAKING - ED course Complexity details: reviewed results, considered differential, d/w patient Departure - Departure Disposition: 01 Home, Self Care Clinical Impression: Urinary tract infection Condition: Good Instructions: ED UTI Cystitis Female Follow-Up: SHANTANU PATRICIO MD [Primary Care Provider] - Prescriptions: Nitrofurantoin [Macrobid] 100 mg PO BID #9 capsule Phenazopyridine HCl [Pyridium] 200 mg PO TID 2 Days #6 tablet
[2020-01-25] MEDS ORDERED: PHENAZOPYRIDINE 100 MG TABLET PO STA (22:32)
[2020-01-25] MEDS ORDERED: NITROFURANTOIN MACRO 100 MG CAPSULE PO STA (22:32)
[2020-01-25 22:45] VITALS: BP 142/82
== END 2020-01-25 22:44 | disposition home or self-care (01) ==
LOC: ED 21:38
DX: N39.0 Urinary tract infection, site not specified (principal); I10 Essential (primary) hypertension; E11.9 Type 2 diabetes mellitus without complications; Z79.82 Long term (current) use of aspirin
CPT/HCPCS: 81001; 87086; 99283; A9270; 81003

== ENCOUNTER 2020-06-12 08:30 | Outpatient (CLI) | payer MEDICARE, OTHER ==
[2020-06-12 09:06] VITALS: BP 93/58
--- NOTE | 2020-06-12 09:06 | SLEEP CARE CONSULTATION ---
Information from patient questionnaire entered by Bobbi Rendon. I have reviewed and concur with the information entered by Bobbi Rendon. This document represents the service I personally performed and the decisions made by , Monet Herbert ARNP. History of Present Illness Service Date and Time: 06/12/2020 0830 Reason for Visit: New patient, Previously diagnosed sleep apnea (mild - AHI - 14.1 in 2016; 22.6 in 2014), sleep apnea on CPAP therapy ([facility]), Re- establish care (last seen 10/2016) Date of Onset: long time Usual bedtime: 10 pm Time it takes to fall asleep: 10 minutes Snores at night: Yes Observed to quit breathing while asleep: Yes Sleeps alone due to snoring: Yes Number of times waking at night: 1 Reasons for waking at night: reports: Bathroom, Other (turn over) Toss, Turn, or Twitch while sleeping: No Recalls having dreams: Yes Usually gets out of bed at: 5 am Feels refreshed in the morning: Yes Morning headache: No Sleepy or fatigued during the day: No Ever fallen asleep while driving: No Takes day naps: No Dreams during day naps: No Prior sleep studies: Yes Year and Where: 2016 and 2014 - [facility] Type of Sleep Study: Polysomnography Additional HPI information: CHRIS IRAHETA was diagnosed to have mild, AHI 14.1, obstructive sleep apnea- hypopnea syndrome and returns today to re-establish care for CPAP therapy. - Parasomnia Symptoms Ever been unable to move upon waking from sleep: No Walks in sleep: No Talks in sleep: No Ever acted out dreams in sleep: No Ever felt weak in the knees when startled or emotional: No Bothered by creepy, crawly, restless sensations in legs: No Problems with memory or concentration: No CPAP Compliance Data - Data Reviewed with Patient Average duration of nightly device use: 7 hr 29 min Compliance rate %: 73.3 Current pressure setting (cmH2O): 11 Humidity settin Heated hose settin Average residual AHI: 3.4 Average large leak: 19 min 46 sec Compliance data discussion: She normally uses a full face mask. She has not been able to get supplies and needs a DME transfer today. She is using a patched up mask that is leaking a lot and noisy. She has been using it more lately because her snoring is bothering her at night. Subjective Missed days of use due to: reports: mask issues Patient concerns: reports: mask discomfort (needs a new mask), air blowing in eyes, mask leak noise, condensation in mask/hose, dry mouth, nose, throat. denies: aerophagia, nasal congestion, epistaxis, other Observed to snore while using device: No Current pressure setting perceived as: comfortable On therapy, patient: reports: sleeping better, awakening more refreshed, being more awake and alert during the day, more rested overall. denies: drowsiness while driving Initial [place] Sleepiness Scale score: 5 (in 2015) Current [place] Sleepiness Scale score: 13 Past Medical History Past Medical History: reports: Coronary Heart Disease (open heart surgery 2003). 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 Patient is and lives in [place]. Have you smoked in the past 12 months: No Alcohol use: No Caffeine use: Yes Caffeine amount and frequency: 2 times a month Family History Family history of sleep disordered breathing: No Allergies and Home Medications Drug allergies reviewed: Yes (nitroglycerin) Home medication list reviewed: Yes Allergy and home medication list: baby aspirin Rosuvastatin Losartan Loratidine Azetimibe Carvedilol Synthroid HCTZ Review of Systems Cardiovascular: reports: leg or foot swelling (foot). denies: high blood pressure Gastrointestinal: denies: heartburn Neurological: denies: headaches Psychiatric: denies: anxiety, depression Ear/Nose/Throat: reports: dry mouth/throat, wisdom teeth removed. denies: tonsillectomy Physical Exam Blood Pressure: 93/58 Cuff size: wrist Heart Rate: 68 O2 Saturation: 99 Height: 5 ft 7 in Weight: 289 lb Body Mass Index: 45.2 BMI Classification: Morbidly Obese Impression and Plan 1. Obstructive Sleep Apnea-Hypopnea Syndrome, mild, with fair treatment compliance and good apnea control. On CPAP therapy, the patient has better sleep quality and is more rested overall. She has not been here since 2017 and came in to re-establish care. She needs to be able to get supplies and she is compliant. Patient was informed that a DME can be used for supplies that she needs. I will have my customer solutions coordinator inform of DME options. A DWO prescription will then be made. Patient advised to contact this office if further supply problems. Patient's apnea severity and rationale for treatment to reduce apnea, improve sleep quality and reduce cardiovascular and cerebrovascular events was reviewed. I also reviewed the benefit of consistent device use of CPAP for cardiac disease * Continue autoCPAP pressure at 11 cmH2O * Transfer DME and update supplies * Notify me if snoring with mask or feeling that the pressure is too much or too little * Attempt to lose weight * Call this office if any problems using CPAP * Return for follow up in 1 year, or sooner if concerns arise Counseling Topics: Spare mask, Weight loss health impact Visit Type: In Office Time Spent with Patient (minutes): 30 Provider Statement: I spent 100% of the Face to Face Visit with the patient with greater than 50% spent counseling the patient and coordination of care.
== END 2020-06-12 08:31 | disposition home or self-care (01) ==
LOC: SC 08:30
PROVIDERS: ATTEND Nurse Practitioner Family
DX: G47.33 Obstructive sleep apnea (adult) (pediatric) (principal); E66.01 Morbid (severe) obesity due to excess calories; Z68.42 Body mass index [BMI] 45.0-49.9, adult
CPT/HCPCS: 99203; G0463; 99212

== ENCOUNTER 2020-11-06 06:23 | Emergency (ER) | payer MEDICARE, OTHER ==
[2020-11-06 06:34] VITALS: BP 147/82
--- NOTE | 2020-11-06 07:00 | ED Physician Documentation ---
PD HPI HEENT - Stated complaint Stated Complaint: RT EAR PAIN - Chief complaint Chief Complaint: Heent - History obtained from History obtained from: Patient - History of Present Illness Timing - onset: How many days ago (few) Timing - duration: Days (few) Timing - details: Gradual onset, Still present Location: Right ear Associated symptoms: Rhinorrhea, Other (watery/itchy eyes). No: Fever Similar symptoms before: Diagnosis (she states gets this each year about this time of year.) Recently seen: Not recently seen Review of Systems Constitutional: denies: Fever, Chills Eyes: reports: Irritation. denies: Discharge Nose: reports: Rhinorrhea / runny nose, Sinus pressure / pain Throat: denies: Sore throat Respiratory: reports: Cough (nonproductive). 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 : None HEENT: None Psych: None Musculoskeletal: Chronic back pain Derm: None - Past Surgical History Past Surgical History: Yes Cardiovascular: CABG - Present Medications Home Medications: Ambulatory Orders Medication Instructions Recorded Confirmed Aspirin 81 mg PO DAILY 08/25/12 09/13/17 Atorvastatin Calcium [Lipitor] 30 mg PO HS 08/25/12 09/13/17 Ezetimibe [Zetia] 10 mg PO QD 08/25/12 09/13/17 Nitroglycerin [Nitrostat] 0.4 mg SL Q5MIN PRN 08/25/12 09/13/17 raNITIdine HCL [Ranitidine HCl] 150 mg PO BID #28 capsule 08/25/12 09/13/17 Indomethacin [Indocin] 25 mg PO BIDWM PRN #14 capsule 04/08/18 Tramadol HCl 50 mg PO Q6HR PRN #20 tablet 05/13/18 Nitrofurantoin [Macrobid] 100 mg PO BID #9 capsule 01/25/20 Benzonatate [Tessalon] 100 mg PO TID PRN #25 cap 11/06/20 Cetirizine [ZyrTEC] 10 mg PO DAILY #15 tablet 11/06/20 dexAMETHasone [Decadron] 4 mg PO DAILY #5 tablet 11/06/20 - Allergies Allergies/Adverse Reactions: Allergies Allergy/AdvReac Type Severity Reaction Status Date / Time nitroglycerin Allergy Hallucinati Verified 11/06/20 06:34 ons - Social History Does the pt smoke?: No Smoking Status: Never smoker Does the pt drink ETOH?: No Does the pt have substance abuse?: No - Immunizations Immunizations are current?: Yes - POLST Patient has POLST: No PD ED PE NORMAL - Vitals Vital signs reviewed: Yes - General General: Alert and oriented X 3, No acute distress, Well developed/nourished - HEENT HEENT: Moist mucous membranes, Pharynx benign. No: Ears normal (both ears, R>L, with fluid behind TM but no redness nor inflammation. ) - Neck Neck: Supple, no meningeal sign, No adenopathy - Cardiac Cardiac: RRR, No murmur - Derm Derm: Normal color, Warm and dry, No rash - Neuro Neuro: Alert and oriented X 3, Normal speech Results - Vitals Vitals: Vital Signs - 24 hr 11/06/20 06:33 Temperature 36.4 C L Heart Rate 87 Respiratory 16 Rate Blood Pressure 147/82 H O2 Saturation 95 Oxygen O2 Source Room air PD MEDICAL DECISION MAKING - ED course Complexity details: considered differential (Patient describes onset of watery eyes, congestion, ear pressure for several days. She gets this seasonally.), d/w patient Departure - Departure Disposition: 01 Home, Self Care Clinical Impression: Seasonal allergic reaction Serous otitis media Qualifiers: Chronicity: acute Laterality: right Recurrence: recurrent Qualified Code(s): H65.04 - Acute serous otitis media, recurrent, right ear Condition: Stable Record reviewed to determine appropriate education?: Yes Instructions: ED Otitis Media Serous Adult Prescriptions: dexAMETHasone [Decadron] 4 mg PO DAILY #5 tablet Benzonatate [Tessalon] 100 mg PO TID PRN #25 cap PRN Reason: Cough Cetirizine [ZyrTEC] 10 mg PO DAILY #15 tablet Comments: Decadron steroid daily for 5 days to decrease allergy response. Use the cetirizine antihistamine daily for couple of weeks. You could use it twice daily for the first 2 days to help a little bit more. Tessalon (benzonatate) to help with cough. I would anticipate improvement in your symptoms over the next few days. Return if worsening.
[2020-11-06] MEDS ORDERED: DEXAMETHASONE 10 MG/ML VIAL PO STA (07:11)
[2020-11-06] MEDS ORDERED: CHERRY SYRUP 10 ML UDC PO ONE (07:11)
[2020-11-06] MEDS ORDERED: BENZONATATE 100 MG CAPSULE PO STA (07:11)
[2020-11-06] MEDS ORDERED: CETIRIZINE 10 MG TABLET PO STA (07:11)
== END 2020-11-06 07:44 | disposition home or self-care (01) ==
LOC: ED 06:23
DX: H65.04 Acute serous otitis media, recurrent, right ear (principal); J30.2 Other seasonal allergic rhinitis; I10 Essential (primary) hypertension; E11.9 Type 2 diabetes mellitus without complications
CPT/HCPCS: 99283; A9270

== ENCOUNTER 2022-03-12 08:13 | Emergency (ER) | payer MEDICARE, OTHER ==
[2022-03-12 08:44] LABS: BASOPHILS % (AUTO) 0.2 %; EOSINOPHILS # (AUTO) 0.2 10^3/uL (0.0-0.7); EOSINOPHILS % (AUTO) 3.6 %; HCT - HEMATOCRIT 35.1 % (37.0-47.0); HGB - HEMOGLOBIN 10.8 g/dL (12.0-16.0); LYMPHOCYTES # (AUTO) 1.6 10^3/uL (1.5-3.5); MEAN CORPUSCULAR HEMOGLOBIN 25.7 pg (27.0-31.0); MEAN CORPUSCULAR HGB CONC 30.8 g/dL (32.0-36.0); MEAN CORPUSCULAR VOLUME 83.4 fL (81.0-99.0); MEAN PLATELET VOLUME 10.5 fL (7.9-10.8); MONOCYTES # (AUTO) 0.3 10^3/uL (0.0-1.0); MONOCYTES % (AUTO) 7.2 %; NEUTROPHILS # (AUTO) 2.4 10^3/uL (1.5-6.6); NEUTROPHILS % (AUTO) 53.8 %; PLT - PLATELET COUNT 244 10^3/uL (130-450); RED BLOOD COUNT 4.21 10^6/uL (4.20-5.40); RED CELL DISTRIBUTION WIDTH 16.1 % (12.0-15.0); WHITE BLOOD COUNT 4.5 x10^3/uL (4.8-10.8)
--- NOTE | 2022-03-12 09:09 | XRAY Report ---
PROCEDURE: Chest 1 View X-Ray INDICATIONS: Chest pain TECHNIQUE: One view of the chest was acquired. COMPARISON: None. FINDINGS: Surgical changes and devices: Remote CABG. Lungs and pleura: No pleural effusions or pneumothorax. Lungs are clear. Mediastinum: Mediastinal contours appear normal. Mild cardiomegaly. Bones and chest wall: No suspicious bony lesions. Overlying soft tissues appear unremarkable. IMPRESSION: No gross pulmonary infiltrates. Mild cardiomegaly. Reviewed by: Michele Landry MD on 03/12/2022 9:08 AM [facility] Approved by: Michele Landry MD on 03/12/2022 9:08 AM [facility] Station ID: [id number]
--- NOTE | 2022-03-12 09:13 | ED Physician Documentation ---
History of Present Illness - Stated complaint Stated Complaint: CHEST PX - Chief complaint Chief Complaint: Cardiac - Additonal information Additional information: Patient is 66-year-old female with past medical significant for open heart byp ass in 2003 presenting to the emergency department with chest pain. Reports dull left-sided chest pain that occurred at approximately 0130 this morning. Did not wake her from sleep. Pain is since subsided. She reports that she follows with a oncology patient navigator in [place] who did have her start an antiacid medication as he had concerned that she may be experiencing "heartburn". She denies any shortness of breath or diaphoresis associated with her symptoms. Otherwise denies for any fever, chills, abdominal pain, diarrhea, constipation, new rash, new weakness/numbness/tingling in any extremity. 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 : None HEENT: None Psych: None Musculoskeletal: Chronic back pain Derm: None - Past Surgical History Past Surgical History: Yes Cardiovascular: CABG - Present Medications Home Medications: Ambulatory Orders Medication Instructions Recorded Confirmed Aspirin 81 mg PO DAILY 08/25/12 09/13/17 Atorvastatin Calcium [Lipitor] 30 mg PO HS 08/25/12 09/13/17 Ezetimibe [Zetia] 10 mg PO QD 08/25/12 09/13/17 Nitroglycerin [Nitrostat] 0.4 mg SL Q5MIN PRN 08/25/12 09/13/17 raNITIdine HCL [Ranitidine HCl] 150 mg PO BID #28 capsule 08/25/12 09/13/17 Indomethacin [Indocin] 25 mg PO BIDWM PRN #14 capsule 04/08/18 Tramadol HCl 50 mg PO Q6HR PRN #20 tablet 05/13/18 Nitrofurantoin [Macrobid] 100 mg PO BID #9 capsule 01/25/20 Benzonatate [Tessalon] 100 mg PO TID PRN #25 cap 11/06/20 Cetirizine [ZyrTEC] 10 mg PO DAILY #15 tablet 11/06/20 dexAMETHasone [Decadron] 4 mg PO DAILY #5 tablet 11/06/20 - Allergies Allergies/Adverse Reactions: Allergies Allergy/AdvReac Type Severity Reaction Status Date / Time nitroglycerin Allergy Hallucinati Verified 11/06/20 06:34 ons - Social History Does the pt smoke?: No Smoking Status: Never smoker Does the pt drink ETOH?: No Does the pt have substance abuse?: No - Immunizations Immunizations are current?: Yes - POLST Patient has POLST: No PD ED PE NORMAL - Vitals Vital signs reviewed: Yes - General General: Alert and oriented X 3, No acute distress, Well developed/nourished - HEENT HEENT: Atraumatic, PERRL - Neck Neck: Supple, no meningeal sign - Cardiac Cardiac: RRR, No gallop - Respiratory Respiratory: No respiratory distress, Clear bilaterally - Abdomen Abdomen: Normal bowel sounds, Non tender - Female Female : Deferred - Rectal Rectal: Deferred - Derm Derm: Normal color - Extremities Extremities: No edema - Neuro Neuro: Alert and oriented X 3, 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, No motor deficit, No sensory deficit, Normal speech Results - Vitals Vitals: Vital Signs - 24 hr 03/12/22 03/12/22 03/12/22 08:21 08:35 10:08 Temperature 36.9 C Heart Rate 69 67 61 Respiratory 20 17 16 Rate Blood Pressure 133/81 H 110/77 83/69 L O2 Saturation 100 100 100 Oxygen O2 Source Room air - EKG (time done) 0820 Rate: Rate (enter#) (69) Rhythm: NSR [place]: Normal Intervals: Normal SC QRS: Normal Ischemia: Normal ST segments, Non specific changes Computer interpretation: Agree with computer - Labs Labs: Laboratory Tests 03/12/22 03/12/22 03/12/22 08:40 08:59 08:59 WBC 4.5 L RBC 4.21 Hgb 10.8 L Hct 35.1 L MCV 83.4 MCH 25.7 L MCHC 30.8 L RDW 16.1 H Plt Count 244 MPV 10.5 Neut # (Auto) 2.4 Lymph # (Auto) 1.6 [place] # (Auto) 0.3 Eos # (Auto) 0.2 Baso # (Auto) 0.0 Absolute Nucleated RBC 0.00 Nucleated RBC % 0.0 Sodium 140 Potassium 3.4 L Chloride 102 Carbon Dioxide 31 Anion Gap 7.0 BUN 19 Creatinine 0.8 Estimated GFR (MDRD) 87 L Glucose 99 Calcium 9.2 Total Bilirubin 0.7 AST 17 ALT 16 Alkaline Phosphatase 58 Troponin I High Sens 2.6 Total Protein 8.0 Albumin 3.3 Globulin 4.7 H Albumin/Globulin Ratio 0.7 L Lipase 32 PD Medical Decision Making - ED course Complexity details: reviewed results, d/w patient ED course: Patient is 66-year-old female presenting to the emergency department with chest pain in setting of known history of coronary artery disease and bypass surgery in 2003. Afebrile, he medically stable and arrival to the emergency department. EKG ordered and interpreted by myself demonstrated a sinus rhythm without indications of acute cardiac ischemia or dysrhythmia. Labs obtained included a CBC which demonstrated a stable leukopenia with white blood cell count 4.2. Comprehensive metabolic panel was also within normal limits or nonactionable. Patient's high-sensitivity troponin was negative. Her chest x-ray was nonacute. She did not demonstrate tachypnea, tachycardia or other signs that would be of eminent concern for PE and she denied any ongoing pain in the emergency department which is equally reassuring. At this time I will discharge her for follow-up with her oncology patient navigator. I will encourage her to continue taking all of her current medications. Otherwise clear return precautions were given prior to discharge. Final clinical impression, atypical chest pain. Departure - Departure Disposition: 01 Home, Self Care Clinical Impression: Chest pain Instructions: ED Chest Pain Atypical Unkn Cause Comments: Thank you for allowing us to care for you today at [facility]. Today in the emergency department you were evaluated for any possible life- threatening medical emergency. All of the testing performed in the emergency department including your EKG, blood work and chest x-ray were all very reassuring. I would like you to make a follow-up appoint with your oncology patient navigator as soon as possible. If it anytime you have new or worsening symptoms or if your chest pain recurs its important that you return to the emergency department. In the meantime I do recommend continuing to take all of your current medications as prescribed. Again if it anytime you have new or worsening symptoms please not hesitate to return. Discharge Date/Time: 03/12/22 10:21
[2022-03-12 09:19] LABS: ALBUMIN 3.3 g/dL (3.2-5.5); ALBUMIN/GLOBULIN RATIO 0.7 (1.0-2.2); BILIRUBIN,TOTAL 0.7 mg/dL (0.2-1.0); CALCIUM 9.2 mg/dL (8.5-10.3); CREATININE 0.8 mg/dL (0.4-1.0); POTASSIUM 3.4 mmol/L (3.5-5.0)
[2022-03-12 10:09] VITALS: BP 83/69
== END 2022-03-12 10:21 | disposition home or self-care (01) ==
LOC: ED 08:13
DX: R07.9 Chest pain, unspecified (principal); I10 Essential (primary) hypertension; E11.9 Type 2 diabetes mellitus without complications; I25.10 Atherosclerotic heart disease of native coronary artery without angina pectoris
CPT/HCPCS: 36415; 80053; 83690; 84484; 85025; 93005; 99281; 99284

== ENCOUNTER 2022-07-31 18:43 | Emergency (ER) | payer MEDICARE, OTHER ==
[2022-07-31 18:50] VITALS: BP 149/83
[2022-07-31] MEDS ORDERED: BENZONATATE 100 MG CAPSULE PO STA (19:08)
[2022-07-31] MEDS ORDERED: guaiFENesin/DEXTROMETHORPHAN 10 ML UDC PO STA (19:08)
--- NOTE | 2022-07-31 19:16 | ED Physician Documentation ---
History of Present Illness - Stated complaint Stated Complaint: COUGH,LACK OF SLEEP - Chief complaint Chief Complaint: General - History obtained from History obtained from: Patient - Additonal information Additional information: 67-year-old female presents to the emergency department stating that she has had a cough since having an endoscopy done on Tuesday. No relief with cough drops [id number]. No fevers. No chills. The cough is dry. No congestion. No difficulty breathing. She states that she cannot sleep because of the cough. No chest pain. 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 : None HEENT: None Psych: None Musculoskeletal: Chronic back pain Derm: None - Past Surgical History Past Surgical History: Yes Cardiovascular: CABG - Present Medications Home Medications: Ambulatory Orders Medication Instructions Recorded Confirmed Aspirin 81 mg PO DAILY 08/25/12 09/13/17 Atorvastatin Calcium [Lipitor] 30 mg PO HS 08/25/12 09/13/17 Ezetimibe [Zetia] 10 mg PO QD 08/25/12 09/13/17 Nitroglycerin [Nitrostat] 0.4 mg SL Q5MIN PRN 08/25/12 09/13/17 raNITIdine HCL [Ranitidine HCl] 150 mg PO BID #28 capsule 08/25/12 09/13/17 Indomethacin [Indocin] 25 mg PO BIDWM PRN #14 capsule 04/08/18 Tramadol HCl 50 mg PO Q6HR PRN #20 tablet 05/13/18 Nitrofurantoin [Macrobid] 100 mg PO BID #9 capsule 01/25/20 Benzonatate [Tessalon] 100 mg PO TID PRN #25 cap 11/06/20 Cetirizine [ZyrTEC] 10 mg PO DAILY #15 tablet 11/06/20 dexAMETHasone [Decadron] 4 mg PO DAILY #5 tablet 11/06/20 Benzonatate [Tessalon] 200 mg PO TID PRN #30 cap 07/31/22 Guaifenesin/Dextromethorphan 10 ml PO Q6H PRN #473 ml 07/31/22 [Chest Congestion Relief Dm Syr] - Allergies Allergies/Adverse Reactions: Allergies Allergy/AdvReac Type Severity Reaction Status Date / Time nitroglycerin Allergy Hallucinati Verified 07/31/22 18:47 ons - Social History Does the pt smoke?: No Smoking Status: Never smoker Does the pt drink ETOH?: No Does the pt have substance abuse?: No - Immunizations Immunizations are current?: Yes - POLST Patient has POLST: No PD ED PE NORMAL - Vitals Vital signs reviewed: Yes - General General: Alert and oriented X 3, No acute distress - HEENT HEENT: Ears normal, Moist mucous membranes, Pharynx benign - Neck Neck: Supple, no meningeal sign - Cardiac Cardiac: RRR, Strong equal pulses - Respiratory Respiratory: No respiratory distress, Clear bilaterally - Derm Derm: Warm and dry - Neuro Neuro: Alert and oriented X 3 - Psych Psych: Normal mood, Normal affect Results - Vitals Vitals: Vital Signs - 24 hr 07/31/22 18:47 Temperature 36.5 C Heart Rate 87 Respiratory 16 Rate Blood Pressure 149/83 H O2 Saturation 98 Oxygen O2 Source Room air PD Medical Decision Making - ED course Complexity details: considered differential, d/w patient ED course: Patient is well-appearing, nontoxic. Afebrile. No hypoxia. No respiratory distress. Lungs are clear to auscultation bilaterally. Likely that this is irritation from her recent endoscopy, however could be the start of a viral URI as well. We will place on cough medication for home. No wheezing. No stridor. Normal phonation. No rhinorrhea or congestion. Patient counseled regarding signs and symptoms for which I believe and urgent re-evaluation would be necessary. Patient with good understanding of and agreement to plan and is comfortable going home at this time This document was made in part using voice recognition software. While efforts are made to proofread this document, sound alike and grammatical errors may occur. Departure - Departure Disposition: Home, Self Care Clinical Impression: Cough Qualifiers: Cough type: acute Qualified Code(s): R05.1 - Acute cough Condition: Good Instructions: Deep Coughing Follow-Up: your,doctor next week if not better [Other] Prescriptions: Guaifenesin/Dextromethorphan [Chest Congestion Relief Dm Syr] 10 ml PO Q6H PRN #473 ml PRN Reason: Cough Benzonatate [Tessalon] 200 mg PO TID PRN #30 cap PRN Reason: Cough Comments: Your prescriptions were sent to [facility] in [place]. Please follow-up with your doctor for further care. Please return if you worsen. This should improve as your throat heals from the endoscopy. Discharge Date/Time: 07/31/22 19:29
== END 2022-07-31 19:29 | disposition home or self-care (01) ==
LOC: ED 18:43
DX: R05.1 Acute cough (principal); I10 Essential (primary) hypertension; E11.9 Type 2 diabetes mellitus without complications; Z95.1 Presence of aortocoronary bypass graft
CPT/HCPCS: 99282; 99283; A9270

== ENCOUNTER 2022-08-03 07:22 | Emergency (ER) | payer MEDICARE, OTHER ==
[2022-08-03 07:32] VITALS: BP 148/82
[2022-08-03 07:57] LABS: BILIRUBIN,URINE NEGATIVE (NEGATIVE); GLUCOSE, URINE (UA) NEGATIVE (NEGATIVE); KETONES,URINE (UA) NEGATIVE (NEGATIVE); LEUKOCYTE ESTERASE, URINE LARGE (NEGATIVE); NITRITE,URINE POSITIVE (NEGATIVE); OCCULT BLOOD,URINE LARGE (NEGATIVE); PROTEIN,URINE 100 mg/dL (NEGATIVE); UROBILINOGEN,URINE 2 E.U./dL (NORMAL)
[2022-08-03 08:06] LABS: CLARITY,URINE CLOUDY (CLEAR)
[2022-08-03 08:16] LABS: SQUAMOUS EPITHELIAL CELL,UR FEW Squamous (<= Few); WBC CLUMPS,URINE PRESENT; WBC,URINE >25 /HPF (0-5)
[2022-08-03 08:17] LABS: BACTERIA,URINE Moderate /HPF (None Seen)
[2022-08-03] MEDS ORDERED: cephALEXin 250 MG CAPSULE PO STA (08:19)
[2022-08-03] MEDS ORDERED: PHENAZOPYRIDINE 100 MG TABLET PO STA (08:26)
--- NOTE | 2022-08-03 08:26 | ED Physician Documentation ---
History of Present Illness - Stated complaint Stated Complaint: FEMALE - Chief complaint Chief Complaint: UTI - Additonal information Additional information: Patient 67-year-old female presenting to the emergency department with chief complaint dysuria as well as cough and difficulty sleeping at night. Seen here 07/31/2022 for cough that has been keeping her awake at night. At that time prescribed Tessalon and Robitussin with minimal relief. Reports dysuria that began yesterday. Denies fevers but states "I am a cold blood to person at baseline". Denies flank or abdominal pain. Request something stronger to help with her cough stating that the Tessalon and Robitussin that was previously prescribed has not been helping. Review of Systems Constitutional: denies: Fever Eyes: denies: Loss of vision Ears: denies: Loss of hearing Nose: denies: Rhinorrhea / runny nose Throat: denies: Dental pain / toothache Cardiac: denies: Chest pain / pressure, Palpitations, Pedal edema Respiratory: reports: Cough. 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 : None HEENT: None Psych: None Musculoskeletal: Chronic back pain Derm: None - Past Surgical History Past Surgical History: Yes Cardiovascular: CABG - Present Medications Home Medications: Ambulatory Orders Medication Instructions Recorded Confirmed Aspirin 81 mg PO DAILY 08/25/12 08/03/22 Ezetimibe [Zetia] 10 mg PO QD 08/25/12 08/03/22 raNITIdine HCL [Ranitidine HCl] 150 mg PO BID #28 capsule 08/25/12 08/03/22 Cetirizine [ZyrTEC] 10 mg PO DAILY #15 tablet 11/06/20 08/03/22 Benzonatate [Tessalon] 200 mg PO TID PRN #30 cap 07/31/22 08/03/22 Guaifenesin/Dextromethorphan 10 ml PO Q6H PRN #473 ml 07/31/22 08/03/22 [Chest Congestion Relief Dm Syr] Carvedilol [Coreg] 6.25 mg PO DAILY 08/03/22 08/03/22 Codeine Phosphate/Guaifenesin 5 ml PO HS PRN #30 ml 08/03/22 [Codeine-Guaifen 10-100 mg/5 ml] Phenazopyridine HCl [Pyridium] 200 mg PO TID PRN #6 tablet 08/03/22 Rosuvastatin Calcium [Crestor] 40 mg PO HS 08/03/22 08/03/22 amLODIPine [Norvasc] 5 mg PO DAILY 08/03/22 08/03/22 cephALEXin [Keflex] 500 mg PO Q6H #20 cap 08/03/22 hydroCHLOROthiazide [Hydrodiuril] 12.5 mg PO DAILY 08/03/22 08/03/22 - Allergies Allergies/Adverse Reactions: Allergies Allergy/AdvReac Type Severity Reaction Status Date / Time nitroglycerin Allergy Hallucinati Verified 08/03/22 07:29 ons - Social History Does the pt smoke?: No Smoking Status: Never smoker Does the pt drink ETOH?: No Does the pt have substance abuse?: No - Immunizations Immunizations are current?: Yes - POLST Patient has POLST: No Results - Vitals Vitals: Vital Signs - 24 hr 08/03/22 07:29 Temperature 36.6 C Heart Rate 87 Respiratory 18 Rate Blood Pressure 148/82 H O2 Saturation 97 Oxygen O2 Source Room air - Labs Labs: Laboratory Tests 08/03/22 07:50 Urine Color YELLOW Urine Clarity CLOUDY Urine pH 7.0 Ur Specific [place] 1.010 Urine Protein 100 H Urine Glucose (UA) NEGATIVE Urine Ketones NEGATIVE Urine Occult Blood LARGE H Urine Nitrite POSITIVE H Urine Bilirubin NEGATIVE Urine Urobilinogen 2 H Ur Leukocyte Esterase LARGE H Urine RBC 6-10 H Urine WBC >25 H Urine WBC Clumps PRESENT Ur Squamous Epith Cells FEW Squamous Urine Bacteria Moderate H Ur Microscopic Review INDICATED Urine Culture Comments INDICATED PD Medical Decision Making - ED course Complexity details: reviewed old records, considered differential, d/w patient ED course: Patient 67-year-old female presenting to the emergency department chief complaint of dysuria x1 day as well as cough times several days. Afebrile, hemodynamically stable. Clear aeration in all lung kim. No respiratory distress. No CVA tenderness or abdominal tenderness on exam. Vitals otherwise within normal limits. Urine analysis with clear indications of infection. Urin e culture pending. Will initiate course Keflex. Previous cultures were reviewed and they did demonstrate one positive culture in 2017 for E. coli that was mesa susceptible. There is a second culture noted to have mixed likely urogenital and skin tabitha. Additionally will discharge with short course codeine-containing cough syrup for help with her cough. Encourage careful follow-up with primary care return to the emergency department as needed. Departure - Departure Disposition: 01 Home, Self Care Clinical Impression: UTI (urinary tract infection) Qualifiers: Urinary tract infection type: acute cystitis Hematuria presence: without hematuria Qualified Code(s): N30.00 - Acute cystitis without hematuria Cough Qualifiers: Cough type: subacute Qualified Code(s): R05.2 - Subacute cough Instructions: Urinary Tract Infecs Women Prescriptions: Codeine Phosphate/Guaifenesin [Codeine-Guaifen 10-100 mg/5 ml] 5 ml PO HS PRN #30 ml PRN Reason: Cough cephALEXin [Keflex] 500 mg PO Q6H #20 cap Phenazopyridine HCl [Pyridium] 200 mg PO TID PRN #6 tablet PRN Reason: dysuria Comments: Thank you for allowing us to care for you today at [facility]. Today in the emergency department your evaluated for any possible life- threatening medical emergency. Your urine analysis did show clear indications of a urinary tract infection. I like you to begin a course of oral antibiotics. You received your first dose here in the emergency department. I will be prescribing you a medication known as Pyridium, also known as Azo. This medication is known to help with the symptoms of urinary tract infection. Please be aware that this medication at is known to cause orange or sometimes orange-red discoloration to the urine. If this happens do not be alarmed. I will also be sending your urine sample for culture and further studies. If there is concern for antibiotic resistance we will contact you directly in the next few days. I will also be discharging you with a short course of a codeine-containing cough syrup to help with your cough. Please be aware that this medication is both sedating and habit-forming. This medication should not be used if you are operating a motor vehicle, using of the machinery or you are the sole information operator of young children. It should not be used in conjunction of other sedating medications. It is very important that you follow-up with your primary care doctor concerning your recent ED visits as soon as possible. If it anytime you develop new or worsening symptoms please not hesitate to return.
== END 2022-08-03 08:46 | disposition home or self-care (01) ==
LOC: ED 07:22
DX: N30.00 Acute cystitis without hematuria (principal); R05.9 Cough, unspecified; I10 Essential (primary) hypertension; E78.00 Pure hypercholesterolemia, unspecified; I25.10 Atherosclerotic heart disease of native coronary artery without angina pectoris; E11.9 Type 2 diabetes mellitus without complications; Z79.82 Long term (current) use of aspirin; Z79.899 Other long term (current) drug therapy
CPT/HCPCS: 81001; 87086; 99283; A9270; 81003; 87181

== ENCOUNTER 2023-01-30 19:56 | Emergency (ER) | payer MEDICARE, OTHER ==
[2023-01-30 20:25] LABS: BASOPHILS % (AUTO) 0.3 %; EOSINOPHILS # (AUTO) 0.2 10^3/uL (0.0-0.7); HCT - HEMATOCRIT 35.7 % (37.0-47.0); HGB - HEMOGLOBIN 10.8 g/dL (12.0-16.0); LYMPHOCYTES # (AUTO) 2.2 10^3/uL (1.5-3.5); LYMPHOCYTES % (AUTO) 37.9 %; MEAN CORPUSCULAR HEMOGLOBIN 26.1 pg (27.0-31.0); MEAN CORPUSCULAR HGB CONC 30.3 g/dL (32.0-36.0); MEAN CORPUSCULAR VOLUME 86.2 fL (81.0-99.0); MEAN PLATELET VOLUME 9.9 fL (7.9-10.8); MONOCYTES # (AUTO) 0.4 10^3/uL (0.0-1.0); NEUTROPHILS % (AUTO) 51.6 %; PLT - PLATELET COUNT 238 10^3/uL (130-450); RED BLOOD COUNT 4.14 10^6/uL (4.20-5.40); RED CELL DISTRIBUTION WIDTH 16.1 % (12.0-15.0); WHITE BLOOD COUNT 5.8 x10^3/uL (4.8-10.8)
--- NOTE | 2023-01-30 20:27 | ED Physician Documentation ---
PD HPI CHEST PAIN - Stated complaint Stated Complaint: CHEST PX - Chief complaint Chief Complaint: Cardiac - History obtained from History obtained from: Patient - Additional information Additional information: The patient comes to the emergency department chief complaint of intermittent pains in her left mid back radiating through to her left lower chest for the last approximately 24 hours. The patient states that she usually notices it when she is at rest and has not noticed any onset of pain with walking or other exertion. She denies any associated symptoms. No shortness of breath, nausea, diaphoresis, or lightheadedness. She states the pains are sharp and last anywhere from few seconds to maybe a minute. She has a history of coronary artery disease and had a triple bypass in 2003. She still follows with her assortment planner every year and last had an angiogram about a year ago. She states she was told her arteries looked good at that time. The patient had a treadmill test in August or September, she states, and this went well also. She states she is not currently having any pain. She states she otherwise feels fairly good and at baseline. No swelling of her legs or pain in her calves. No fevers or chills. No other complaints at this time. PD PAST MEDICAL HISTORY - Past Medical History Cardiovascular: Hypertension, High cholesterol, Coronary artery disease Respiratory: None Neuro: None Endocrine/Autoimmune: Type 2 diabetes GI: None RADIO OFFICER: None : None HEENT: None Psych: None Musculoskeletal: Chronic back pain Derm: None - Past Surgical History Past Surgical History: Yes Cardiovascular: CABG - Present Medications Home Medications: Ambulatory Orders Medication Instructions Recorded Confirmed Aspirin 81 mg PO DAILY 08/25/12 01/30/23 Ezetimibe [Zetia] 10 mg PO QD 08/25/12 01/30/23 raNITIdine HCL [Ranitidine HCl] 150 mg PO BID #28 capsule 08/25/12 01/30/23 Rosuvastatin Calcium [Crestor] 40 mg PO HS 08/03/22 01/30/23 amLODIPine [Norvasc] 5 mg PO DAILY 08/03/22 01/30/23 carvediloL [Coreg] 6.25 mg PO DAILY 08/03/22 01/30/23 hydroCHLOROthiazide [Hydrodiuril] 12.5 mg PO DAILY 08/03/22 01/30/23 - Allergies Allergies/Adverse Reactions: Allergies Allergy/AdvReac Type Severity Reaction Status Date / Time nitroglycerin Allergy Hallucinati Verified 01/30/23 20:12 ons - Social History Does the pt smoke?: No Smoking Status: Never smoker Does the pt drink ETOH?: No Does the pt have substance abuse?: No - Immunizations Immunizations are current?: Yes - POLST Patient has POLST: No PD ED PE NORMAL - Vitals Vital signs reviewed: Yes - General General: Alert and oriented X 3, No acute distress, Well developed/nourished - HEENT HEENT: Atraumatic, PERRL, EOMI, Moist mucous membranes - Neck Neck: Supple, no meningeal sign - Cardiac Cardiac: RRR, No murmur, Strong equal pulses - Respiratory Respiratory: No respiratory distress, Clear bilaterally - Abdomen Abdomen: Soft, Non tender, Non distended - Derm Derm: Normal color, Warm and dry, No rash - Extremities Extremities: No deformity, No edema, No calf tenderness / cord - Neuro Neuro: Alert and oriented X 3, Other (Grossly intact.) - Psych Psych: Normal mood, Normal affect Results - Vitals Vitals: Vital Signs - 24 hr 01/30/23 01/30/23 01/30/23 20:05 20:11 21:29 Temperature 36.5 C Heart Rate 80 73 Respiratory 20 20 18 Rate Blood Pressure 146/74 H 123/61 O2 Saturation 97 96 01/30/23 22:08 Temperature Heart Rate 72 Respiratory 16 Rate Blood Pressure 134/65 H O2 Saturation 98 Oxygen O2 Source Room air - EKG (time done) 2004 EKG releavant findings:: EKG personally interpreted by author of this note. Relevant findings are: Rate: Rate (enter#) (79) Rhythm: NSR, LAE (probable) [place]: Normal Intervals: Normal [place] Ischemia: Normal ST segments, Non specific changes Compare to prior EKG: Old EKG unavailable Computer interpretation: Agree with computer - Labs Labs: Laboratory Tests 01/30/23 01/30/23 01/30/23 20:18 20:18 20:18 WBC 5.8 RBC 4.14 L Hgb 10.8 L Hct 35.7 L MCV 86.2 MCH 26.1 L MCHC 30.3 L RDW 16.1 H Plt Count 238 MPV 9.9 Neut # (Auto) 3.0 Lymph # (Auto) 2.2 [place] # (Auto) 0.4 Eos # (Auto) 0.2 Baso # (Auto) 0.0 Absolute Nucleated RBC 0.00 Nucleated RBC % 0.0 Sodium 138 Potassium 3.1 L Chloride 101 Carbon Dioxide 30 Anion Gap 7.0 BUN 11 Creatinine 0.6 Estimated GFR (MDRD) 120 Glucose 114 H Calcium 9.3 Total Bilirubin 0.5 AST 13 ALT 8 L Alkaline Phosphatase 67 Troponin I High Sens 2.4 Total Protein 8.3 Albumin 3.6 Globulin 4.7 H Albumin/Globulin Ratio 0.8 L Lipase 18 PD Medical Decision Making - ED course Complexity details: reviewed results, re-evaluated patient, considered differential, d/w patient ED course: The patient overall was well-appearing and although she had a history of coronary artery disease, had had reassuring recent angiogram and stress test. The patient's pains were atypical, but given her history of coronary artery disease, I felt she should have labs, EKG, and chest x-ray done. The patient's initial work-up was unremarkable, including a normal troponin. The patient was feeling better and had realize that she could reproduce the pain by turning onto her right side, which she had not noticed before. I had ordered a repeat troponin on her, but the patient stated that she did not think she needed to have this done. I discussed with her my reasoning for doing so, although I do feel that with her negative recent work-up and the atypical nature, my now with report reproducibility, the likelihood of a myocardial infarction is very low. The patient declined to have troponin done, though she did state that she would return should anything get worse. She also stated that she would call her assortment planner office first thing in the morning. Given that the patient had discovered that she could reproduce her pain mechanically and that she had been having episodes for over 24 hours, I felt this was reasonable. We have discussed the usual indications for return. Departure - Departure Disposition: 01 Home, Self Care Clinical Impression: Chest pain Qualifiers: Chest pain type: unspecified Qualified Code(s): R07.9 - Chest pain, unspecified Condition: Stable Instructions: ED Chest Pain Atypical Unkn Cause Comments: Your initial set of blood work, your EKG, and chest x-ray all look good. Your pain is somewhat atypical of cardiac pain and now that you have noticed that you can bring the pain on by moving, it is very possible that this is coming from your chest wall. However, given your history of coronary artery disease, despite the negative angiogram a year ago and the negative stress test several months ago, As well as the low likelihood that the pain you are having represent a "heart attack" at this point in time, we have suggested a repeat set of cardiac enzymes to make sure that you are not going up in a delayed fashion, since sometimes symptoms can be atypical. You would like to forego this this evening. It is very important that you call your assortment planner office tomorrow morning to make the next available appointment to follow-up. If you develop severe pain is associated with nausea, shortness of breath, facial sweating, or just a general feeling of extreme unwellness, you should return to the emergency department without delay. Forms: PCP List Discharge Date/Time: 01/30/23 22:09
[2023-01-30 20:40] LABS: ALBUMIN 3.6 g/dL (3.2-5.5); ALBUMIN/GLOBULIN RATIO 0.8 (1.0-2.2); BILIRUBIN,TOTAL 0.5 mg/dL (0.2-1.0); CALCIUM 9.3 mg/dL (8.5-10.3); CREATININE 0.6 mg/dL (0.6-1.3); POTASSIUM 3.1 mmol/L (3.5-4.5); TOTAL PROTEIN 8.3 g/dL (6.4-8.9)
--- NOTE | 2023-01-30 20:43 | XRAY Report ---
PROCEDURE: Chest 1 View X-Ray INDICATIONS: chest pain TECHNIQUE: One view of the chest was acquired. COMPARISON: 03/12/2022. FINDINGS: Surgical changes and devices: Median sternotomy wires are seen.. Lungs and pleura: No pleural effusions or pneumothorax. Lungs are clear. Mediastinum: Mediastinal contours appear normal. Heart size is enlarged. Bones and chest wall: No suspicious bony lesions. Overlying soft tissues appear unremarkable. IMPRESSION: No acute cardiopulmonary process. Reviewed by: Gene Samano MD on 01/30/2023 8:42 PM PST Approved by: Gene Samano MD on 01/30/2023 8:42 PM PST Station ID: [id number]
[2023-01-30 22:11] VITALS: BP 134/65; O2SAT 98
== END 2023-01-30 22:09 | disposition home or self-care (01) ==
LOC: ED 19:56
DX: R07.9 Chest pain, unspecified (principal); I10 Essential (primary) hypertension; I25.10 Atherosclerotic heart disease of native coronary artery without angina pectoris; E11.9 Type 2 diabetes mellitus without complications; E78.00 Pure hypercholesterolemia, unspecified; Z79.82 Long term (current) use of aspirin; Z79.899 Other long term (current) drug therapy; Z95.1 Presence of aortocoronary bypass graft
CPT/HCPCS: 36415; 80053; 83690; 84484; 85025; 93005; 99283; 99284